=== PATIENT | male | born 1995 | race Caucasian/White ===

== ENCOUNTER 2018-08-22 08:03 | Emergency (ER) | payer SELFPAY ==
[~2018-08-22] VITALS: Ht 195.6 cm; Wt 128.0 kg
[2018-08-22] MEDS ORDERED: IBUPROFEN 600MG TABLET PO ONE (10:30)
[2018-08-22] MEDS ORDERED: TETANUS AND DIPHTHERIA TOX/PF 0.5ML SYR (ADULT) IM ONE (10:30)
[2018-08-22] MEDS ORDERED: TETANUS, DIPHTHERIA, PERTUSSIS VAC/PF 0.5ML (>7YR OLD) IM ONE (11:15)
[2018-08-22 11:46] VITALS: BP 152/88
== END 2018-08-22 11:47 | disposition home or self-care (01) ==
LOC: ER 08:11
DX: S29.012A Strain of muscle and tendon of back wall of thorax, initial encounter (principal); S40.012A Contusion of left shoulder, initial encounter; S90.01XA Contusion of right ankle, initial encounter; S20.222A Contusion of left back wall of thorax, initial encounter; S20.221A Contusion of right back wall of thorax, initial encounter; J45.909 Unspecified asthma, uncomplicated; Z87.891 Personal history of nicotine dependence; W01.0XXA Fall on same level from slipping, tripping and stumbling without subsequent striking against object, initial encounter; Y93.89 Activity, other specified; Y92.89 Other specified places as the place of occurrence of the external cause; Y99.8 Other external cause status
CPT/HCPCS: 72070; 73030; 73610; 90471; 90714; 90715; 99283